=== PATIENT | male | born 1945 | race Caucasian/White ===

== ENCOUNTER 2019-07-03 15:45 | Inpatient (IN) | payer OTHER, SELFPAY ==
[~2019-07-03] VITALS: Ht 188 cm; Wt 95.3 kg
--- NOTE | 2019-07-03 15:50 | NUR ---
TO ER #2 ORGAN ASSEMBLER, SAO2, ABP
--- NOTE | 2019-07-03 15:50 | NUR ---
PT BIB EMS for generalized weakness x today, could not stand, called EMS. No trauma. AxOx 4.
[2019-07-03] MEDS ORDERED: NACL 0.9% 1,000 ML IV ONE (15:53)
[2019-07-03 15:57] VITALS: BP_SYST 173
[2019-07-03] MEDS ORDERED: METF-795 PO (15:57)
--- NOTE | 2019-07-03 16:10 | NUR ---
PATIENT PLACED ON OXYGEN 2LM NC
[2019-07-03 16:33] LABS: BASOPHILS # (AUTO) 0.1 K/uL (0.0-0.2); BASOPHILS % (AUTO) 0.6 % (0.0-2.0); EOSINOPHILS % (AUTO) 0.1 % (0.0-4.0); HEMATOCRIT 47.7 % (36-54); HEMOGLOBIN 16.2 g/dL (14.0-18.0); LYMPHOCYTES # (AUTO) 1.2 K/uL (1.0-5.5); LYMPHOCYTES % (AUTO) 6.7 % (20.5-51.5); MEAN CORPUSCULAR HEMOGLOBIN 34 pg (27-31); MEAN CORPUSCULAR HGB CONC 34 % (32-36); MEAN CORPUSCULAR VOLUME 101 fL (79.0-98.0); MONOCYTES # (AUTO) 1.1 K/uL (0.0-1.0); MONOCYTES % (AUTO) 6.2 % (1.7-9.3); NEUTROPHILS % (AUTO) 86.4 % (40.0-70.0); PLATELET COUNT (AUTO) 190 K/uL (130-430); RED BLOOD CELL COUNT(AUTO) 4.74 MIL/uL (4.2-6.2); RED CELL DISTRIBUTION WIDTH 12.9 % (9.0-15.0); WHITE BLOOD COUNT (AUTO) 17.4 K/uL (4.8-10.8)
[2019-07-03 16:40] LABS: INR 2.2 (0.80-1.20); PROTHROMBIN TIME 21.7 SECS (9.5-12.5)
[2019-07-03 16:41] LABS: ANION GAP 10 (5-15); CALCIUM 8.9 mg/dL (8.4-11.0); CHLORIDE 99 mmol/L (98-107); CREATININE 1.59 mg/dL (0.55-1.30); GLUCOSE 146 mg/dL (70-99); POTASSIUM 3.7 mmol/L (3.5-5.1); SODIUM SERUM 136 mmol/L (136-145); UREA NITROGEN, BLOOD 32 mg/dL (8-21)
[2019-07-03] MEDS ORDERED: cefTRIAXone 1 GM IVPB PREMIX 50 ML IV ONE (16:45)
[2019-07-03 17:00] LABS: ALANINE AMINOTRANSFERASE 49 U/L (12-78); ALBUMIN 3.9 g/dL (3.4-4.8); AMYLASE 18 U/L (0-100); ASPARTATE AMINOTRANSFERASE 104 U/L (10-37); LIPASE 53 U/L (73-393); TOTAL BILIRUBIN 1.8 mg/dL (0.0-1.0)
[2019-07-03 17:01] LABS: ALCOHOL, BLOOD < 3 mg/dL (<10)
[2019-07-03 17:18] LABS: CKMB RELATIVE INDEX 0.4 (0.0-2.9); CREATINE KINASE MB 19.9 ng/mL (0-3.6)
--- NOTE | 2019-07-03 17:34 | NUR ---
Pt's Corrine called for an update on pt, aware waiting on pt labs and stable. [facility] [phone]
[2019-07-03] MEDS ORDERED: NACL 0.9% 2,000 ML IV ONE (18:00)
[2019-07-03 18:40] VITALS: BP_SYST 131
--- NOTE | 2019-07-03 18:40 | NUR ---
Patient arrived from ER and placed to room 118 B. Patient awake, alert, oriented. In no acute distress. On 2 liters 02 NC. Received report from ER nurse. Patient placed on tele monitor.
--- NOTE | 2019-07-03 18:50 | NUR ---
Patient will be admitted to care of . Admitted to tele unit. Will go to room 118B. Belongings list completed. Complete and up to date summary report printed. SBAR report to be given at bedside with opportunity for questions.
[2019-07-03] MEDS ORDERED: ONDANSETRON HCL 4 MG/2 ML VIAL IVP PRN (19:00)
[2019-07-03] MEDS ORDERED: DEXTROSE 50% JECT 50 ML DISP.SYRIN IVP PRN (19:00)
[2019-07-03] MEDS ORDERED: GLUCOSE 15 GM GEL (in 37.5 GM TUBE) PO PRN (19:00)
[2019-07-03] MEDS ORDERED: ACETAMINOPHEN 325 MG TABLET PO PRN (19:00)
--- NOTE | 2019-07-03 19:26 | NUR ---
Endorsed patient and gave report to [facility] shift nurse. Patient in no acute distress. Call light with in reach. Side rails x 3 up. Awake, alert, oriented sitting in bed.
[2019-07-03 19:40] VITALS: BP_SYST 128
--- NOTE | 2019-07-03 19:48 | NUR ---
Initial note: Received report from daysriya RN. Patient is awake, laying in bed. No acute distress. Even, unlabored breathing on 2L NC. IV fluids infusing per MD order. Call light is with patient. Safety and fall precautions in place. Will continue with plan of care.
[2019-07-03 20:30] LABS: C-REACTIVE PROTEIN QUANT 7.8 mg/dL (0-0.5); PHOSPHORUS 4.3 mg/dL (2.7-4.5); THYROID STIMULATING HORMONE 0.95 uIu/mL (0.34-4.82)
--- NOTE | 2019-07-03 20:40 | NUR ---
Fall incident: Patient was found laying in supine position on the floor by donor services team leader May. Patient was assisted back to bed by this RN and charge nurse FRANNIE Servin. Patient is alert, oriented x4, and cooperative. Patient stated he needed to urinate, so he stood up, but then slipped and fell. Patient's urinal is in nino strapped to side rail within patient's reach. Floor surrounding patient's bed is slippery, but not wet. Patient denies dizziness or lightheadedness, denies pain s/p fall. No visible injuries or signs of bleeding noted. Blood sugar is 171. Vital signs assessed and recorded in post-fall assessment, hypotension not evident. Patient was changed into a yellow gown, non-skid socks applied to patient's feet bilaterally, fall risk band applied to patient's wrist. Bed is locked in lowest position, side rails raised x3, bed alarm on. Call light is with patient, patient verbalized correct usage of call light. Will monitor patient closely.
[2019-07-03] MEDS: FAMOTIDINE 20 MG TABLET PO SCH ×2 (20:45→21:27)
[2019-07-03] MEDS: NACL 0.9% 1,000 ML IV SCH (21:00)
--- NOTE | 2019-07-03 21:08 | NUR ---
Dr. Ivory: Spoke with Dr over phone, made him aware regarding patient fall. No new orders received. Informed Dr of blood sugar of 171, order received for sliding scale regular insulin. Verified by read-back, RN to input.
[2019-07-03] MEDS: DOCUSATE SODIUM 100 MG CAPSULE PO SCH (21:27)
--- NOTE | 2019-07-03 23:46 | NUR ---
CONSULT: CONSULT CALLED FOR DR. GETACHEW STARR NETWORK ANNOUNCER SHE CALLED US BACK AWARE OD THE CONSULT
--- NOTE | 2019-07-03 23:54 | NUR ---
CONSULT: CONSULT CALLED FOR DR. BERMEO I SPOKE WITH LUIZ LAWSON REASON FOR CONSULT: PNEUMONIA R/O COVID 19 REQUESTING CONSULT: DR. HANNA COMBINATION TECHNICIAN PHONE NUMBER: [phone] Addendum: 07/04/19 at 0011 by [place] [facility]/ DR. RAMIREZ PARKING REGULATION ENFORCEMENT OFFICER FOR DR. BERMEO
--- NOTE | 2019-07-04 00:17 | NUR ---
Dr. Ivory rounds: Dr. Ivory present at bedside to assess and examine patient. No new orders.
[2019-07-04] MEDS: NACL 0.9% 1,000 ML IV SCH ×2 (00:31→19:53)
[2019-07-04 00:34] VITALS: BP_SYST 113
[2019-07-04] MEDS ORDERED: GLIP5TAB13 PO (01:29)
[2019-07-04] MEDS ORDERED: CARV25TA55 PO (01:32)
[2019-07-04] MEDS ORDERED: HYDR25TA4 PO (01:33)
[2019-07-04] MEDS ORDERED: RAMI10CA32 PO (01:33)
--- NOTE | 2019-07-04 01:33 | NUR ---
Spoke with : Corrine called nurses' station for update regarding patient. Obtained full home medication list. Will input medications and have admitting physician reconcile.
[2019-07-04] MEDS ORDERED: LIP20 PO (01:36)
[2019-07-04] MEDS ORDERED: WARF2TAB2 PO (01:36)
--- NOTE | 2019-07-04 01:46 | NUR ---
Dr. Ivory: Spoke with over phone regarding patient's heart rate sustaining in the 130's to 140's. MD was also updated regarding patient's home medications. New orders received, verified by read-back, RN to input.
[2019-07-04] MEDS ORDERED: DILT180C67 PO (01:47)
[2019-07-04] MEDS: DILTIAZEM HCL 180 MG CAP.SR.24H PO SCH (02:19)
--- NOTE | 2019-07-04 03:57 | NUR ---
Rounds: Bed alarm was activated, patient was found sitting at edge of bed. Instructed patient to stay in bed, patient compliant. Patient stated he needed to use the bathroom to void, reminded patient to use his urinal. Patient verbalized understanding. No acute distress on 2L NC. IV fluids infusing well. Call light is with patient. Will continue monitoring.
[2019-07-04] MEDS: INSULIN REGULAR, HUMAN 100 UNITS/ML, 10 ML VIAL (humuLIN R) SUBCUT PRN ×3 (06:44→21:12)
--- NOTE | 2019-07-04 07:45 | NUR ---
Initial notes: Patient is awake, alert and oriented, resting in bed. No signs of distress or nonlabored breathing on 2L NC. Denies pain at this time. IV on right hand is patent and running NS. Cluster care was provided throughout shift. Covid test is still pending, he will remain in isolation for the time being. Received report from day shift nurse. Bed is low, locked, 2 side rails up and call light is within reach. Carmelita KATHLEEN
[2019-07-04 08:00] VITALS: BP_SYST 118
[2019-07-04] MEDS: DOCUSATE SODIUM 100 MG CAPSULE PO SCH ×2 (08:33→21:06)
[2019-07-04] MEDS: CARVEDILOL 25 MG TABLET (COREG) PO SCH ×2 (08:34→21:06)
[2019-07-04] MEDS: HYDROCHLOROTHIAZIDE 25 MG TABLET (HCTZ) PO SCH (08:34)
[2019-07-04] MEDS: ATORVASTATIN 20 MG TABLET PO SCH (08:34)
[2019-07-04] MEDS: LISINOPRIL 20 MG TABLET PO SCH (08:34)
[2019-07-04] MEDS: AZITHROMYCIN 250 MG TABLET PO SCH (08:34)
[2019-07-04] MEDS: FAMOTIDINE 20 MG TABLET PO SCH (08:34)
[2019-07-04 08:50] LABS: BASOPHILS # (AUTO) 0.1 K/uL (0.0-0.2); BASOPHILS % (AUTO) 0.5 % (0.0-2.0); EOSINOPHILS % (AUTO) 0.1 % (0.0-4.0); HEMATOCRIT 42.5 % (36-54); HEMOGLOBIN 14.6 g/dL (14.0-18.0); LYMPHOCYTES # (AUTO) 1.1 K/uL (1.0-5.5); LYMPHOCYTES % (AUTO) 6.8 % (20.5-51.5); MEAN CORPUSCULAR HEMOGLOBIN 35 pg (27-31); MEAN CORPUSCULAR HGB CONC 34 % (32-36); MEAN CORPUSCULAR VOLUME 101 fL (79.0-98.0); MONOCYTES # (AUTO) 0.7 K/uL (0.0-1.0); MONOCYTES % (AUTO) 4.3 % (1.7-9.3); NEUTROPHILS # (AUTO) 13.9 K/uL (1.8-7.7); NEUTROPHILS % (AUTO) 88.3 % (40.0-70.0); PLATELET COUNT (AUTO) 148 K/uL (130-430); RED BLOOD CELL COUNT(AUTO) 4.21 MIL/uL (4.2-6.2); RED CELL DISTRIBUTION WIDTH 13.2 % (9.0-15.0); WHITE BLOOD COUNT (AUTO) 15.7 K/uL (4.8-10.8)
[2019-07-04 09:03] LABS: ANION GAP 8 (5-15); CALCIUM 7.3 mg/dL (8.4-11.0); CHLORIDE 107 mmol/L (98-107); CHOLESTEROL 110 mg/dL (<200); CREATININE 0.84 mg/dL (0.55-1.30); GLUCOSE 162 mg/dL (70-99); HDL CHOLESTEROL 47 mg/dL (>45); LDL CHOLESTEROL 50 mg/dL (<100); SODIUM SERUM 141 mmol/L (136-145); TRIGLYCERIDES 87 mg/dL (30-150); UREA NITROGEN, BLOOD 22 mg/dL (8-21)
[2019-07-04 09:13] LABS: C-REACTIVE PROTEIN QUANT 15.4 mg/dL (0-0.5)
[2019-07-04] MEDS: HEPARIN SODIUM,PORCINE 5000 UNITS/ML VIAL SUBCUT SCH ×2 (09:17→21:08)
[2019-07-04 09:32] LABS: ERYTHROCYTE SEDIMENTATION RATE 6 MM/HR (0-15)
--- NOTE | 2019-07-04 10:02 | NUR ---
Bed commode was brought in as patient had a bowel movement accident on the floor. His bedside commode was made accessible and he was instructed to call the nurse before trying to get up. Bed is low, locked, 2 side rails up and call light is within reach. Carmelita KATHLEEN
[2019-07-04] MEDS ORDERED: ASCORBIC ACID 500 MG TABLET PO ONE (11:30)
--- NOTE | 2019-07-04 12:05 | NUR ---
Meal tray was delivered and cluster care was provided. No signs of distress were noted. Bed is low, locked, 2 side rails are up and call light is within reach. Trevor KATHLEEN
[2019-07-04 14:08] VITALS: BP_SYST 118
--- NOTE | 2019-07-04 14:12 | NUR ---
Patient is well and not showing any signs of distress on monitor or tv camera, i called the patient in the intercom to verify wellbeing or if he needed anything. Trevor KATHLEEN
[2019-07-04] MEDS ORDERED: POTASSIUM CHLORIDE 40 MEQ, LIDOCAINE JECT 2% PF 100 MG 50 MG in NS 250 ML IV ONE (14:30)
--- NOTE | 2019-07-04 16:00 | NUR ---
Patient is doing well, he shows no signs of distress. Bed is low, locked, 2 side rails up and call light is within reach. Carmelita KATHLEEN
[2019-07-04] MEDS: cefTRIAXone 1 GM in D5W 50 ML IV SCH (17:00)
[2019-07-04] MEDS ORDERED: WARFARIN SODIUM 2 MG TABLET PO SCH (18:00)
--- NOTE | 2019-07-04 18:05 | NUR ---
Meal tray was delivered and new IV meds were hung. Patient was repositioned and helped to get up higher in bed. He is not showing signs of distress. Bed is low, locked, 2 side rails up and call light is within reach, Trevor KATHLEEN
--- NOTE | 2019-07-04 18:27 | NUR ---
Closing notes: Patient is awake, alert and oriented, resting in bed. No signs of distress or nonlabored breathing on 2L NC. Denies pain at this time. IV on right hand is patent and running NS. Cluster care was provided throughout shift. Covid test is still pending, he will remain in isolation for the time being. Report will be given to 3rd mate nurse. Bed is low, locked, 2 side rails up and call light is within reach. Carmelita KATHLEEN
[2019-07-04 18:31] VITALS: BP_SYST 99
--- NOTE | 2019-07-04 21:00 | NUR ---
ROUNDS PATIENT DISCONNECTED COLLAR CUTTER/OXIMETER. IV LINE OUT AND FOUND ON THE BED. NO ACTIVE BLEEDING NOTED. 02 CANNULA DISCONNECTED. PATIENT REORIENTED AND PLACED BACK ON 02 CANNULA, COLLAR CUTTER AND OXIMETER. CALL LIGHT WITH IN REACH.
[2019-07-04] MEDS: ASCORBIC ACID 500 MG TABLET PO SCH (21:06)
[2019-07-04 21:12] VITALS: BP_SYST 163
--- NOTE | 2019-07-04 21:12 | NUR ---
MED PASS PATIENT DUE MEDICATIONS GIVEN AND TOLERATED. VITAL SIGNS STABLE. INSERTED NEW IV LINE TO RT WRIST GAUGE 22 WITH GOOD BLOOD RETURN.
[2019-07-05 00:04] VITALS: BP_SYST 120
--- NOTE | 2019-07-05 00:45 | NUR ---
ROUNDS PATIENT RESTING IN BED. NO DISTRESS NOTED. VITAL SIGNS STABLE. CALL LIGHT WITH IN REACH.
--- NOTE | 2019-07-05 03:15 | NUR ---
CARE ASSISTED WITH COMMODE USE. PATIENT CHUX CHANGED. PROVIDED WITH NEW GOWN AND BLANKETS.
[2019-07-05 06:38] LABS: BASOPHILS # (AUTO) 0.1 K/uL (0.0-0.2); BASOPHILS % (AUTO) 0.5 % (0.0-2.0); EOSINOPHILS # (AUTO) 0.1 K/uL (0.0-0.4); EOSINOPHILS % (AUTO) 0.5 % (0.0-4.0); HEMATOCRIT 45.7 % (36-54); HEMOGLOBIN 15.6 g/dL (14.0-18.0); LYMPHOCYTES # (AUTO) 1.2 K/uL (1.0-5.5); LYMPHOCYTES % (AUTO) 9.6 % (20.5-51.5); MEAN CORPUSCULAR HEMOGLOBIN 35 pg (27-31); MEAN CORPUSCULAR HGB CONC 34 % (32-36); MEAN CORPUSCULAR VOLUME 101 fL (79.0-98.0); MONOCYTES # (AUTO) 0.7 K/uL (0.0-1.0); MONOCYTES % (AUTO) 5.1 % (1.7-9.3); NEUTROPHILS # (AUTO) 10.9 K/uL (1.8-7.7); NEUTROPHILS % (AUTO) 84.3 % (40.0-70.0); PLATELET COUNT (AUTO) 131 K/uL (130-430); RED BLOOD CELL COUNT(AUTO) 4.53 MIL/uL (4.2-6.2); RED CELL DISTRIBUTION WIDTH 13.3 % (9.0-15.0)
--- NOTE | 2019-07-05 06:41 | NUR ---
CLOSING NOTES PATIENT RESTING IN BED. TOLERATING 02 2L NC. IVF INFUSING WITH IV LINE INTACT AND PATENT. PATIENT NEEDS ATTENDED. CALL LIGHT WITH IN REACH.
--- NOTE | 2019-07-05 07:07 | NUR ---
Nutrition Update Jerson Scale 18 noted. Pt admitted for Pneumonia, Acute Kidney Injury Diet: Regular BMI: 27 kg/m2 RD to follow per nutrition care standards.
[2019-07-05 07:35] LABS: ANION GAP 7 (5-15); CALCIUM 8.3 mg/dL (8.4-11.0); CHLORIDE 103 mmol/L (98-107); CREATININE 0.91 mg/dL (0.55-1.30); GLUCOSE 150 mg/dL (70-99); LACTATE DEHYDROGENASE 507 U/L (85-227); POTASSIUM 3.7 mmol/L (3.5-5.1); SODIUM SERUM 136 mmol/L (136-145); UREA NITROGEN, BLOOD 23 mg/dL (8-21)
[2019-07-05 07:40] LABS: ERYTHROCYTE SEDIMENTATION RATE 14 MM/HR (0-15)
[2019-07-05 08:17] LABS: C-REACTIVE PROTEIN QUANT 20.1 mg/dL (0-0.5)
[2019-07-05 08:26] VITALS: BP_SYST 120
[2019-07-05] MEDS: HEPARIN SODIUM,PORCINE 5000 UNITS/ML VIAL SUBCUT SCH ×2 (08:30→20:43)
[2019-07-05] MEDS: FAMOTIDINE 20 MG TABLET PO SCH (08:31)
[2019-07-05] MEDS: DOCUSATE SODIUM 100 MG CAPSULE PO SCH ×2 (08:31→20:42)
[2019-07-05] MEDS: ASCORBIC ACID 500 MG TABLET PO SCH ×2 (08:31→20:42)
[2019-07-05] MEDS: CARVEDILOL 25 MG TABLET (COREG) PO SCH ×2 (08:31→20:42)
[2019-07-05] MEDS: LISINOPRIL 20 MG TABLET PO SCH (08:31)
[2019-07-05] MEDS: ATORVASTATIN 20 MG TABLET PO SCH (08:31)
[2019-07-05] MEDS: AZITHROMYCIN 250 MG TABLET PO SCH (08:31)
[2019-07-05] MEDS: DILTIAZEM HCL 180 MG CAP.SR.24H PO SCH (08:31)
[2019-07-05] MEDS: HYDROCHLOROTHIAZIDE 25 MG TABLET (HCTZ) PO SCH (08:31)
--- NOTE | 2019-07-05 08:35 | NUR ---
OPENING NOTES/ ROUTINE MEDS PT AWAKE, ALERT, AND ORIENTED. NONLABORED BREATHING NOTED ON 2L NC, TOLERATING WELL. PT DENIES PAIN AND SOB AT THIS TIME. IV LINE INTACT AND PATENT, NO SIGNS OF INFILTRATION NOTED, FLUIDS RUNNING ORDERED PER MD, TOLERATING WELL. NO ACUTE DISTRESS NOTED. ROUTINE MEDS ADMINISTERED ORDERED PER MD, EDUCATION GIVEN, TOLERATED WELL. ALL NEEDS MET. CALL LIGHT IN REACH. FALL AND ASPIRATION PRECAUTIONS IN PLACE. CONTINUE TO MONITOR.
[2019-07-05 09:08] LABS: CKMB RELATIVE INDEX 0.2 (0.0-2.9); CREATINE KINASE MB 11.6 ng/mL (0-3.6)
--- NOTE | 2019-07-05 09:35 | NUR ---
CONSULTATION PAGED REASON FOR CONSULTATION A-FIB WAS CONSULT CALLED?Y PERSON WHO WAS NOTIFIED:MI CONSULTING PHYSICIAN:EDWIN KAUR MOTOR VEHICLES INSPECTOR SPECIALTY:CARDIO MOTOR VEHICLES INSPECTOR PHONE NUMBER:[phone] REQUESTING PHYSICIAN:DR.[facility]
--- NOTE | 2019-07-05 11:36 | NUR ---
Dietitian Recommendations *Recommend: [facility] Card[facility]. *Provide snacks in between meals. *Encourage pt to increase PO intake. Please see Nutritional Assessment for details. ABDIRASHID, RD
[2019-07-05 12:00] VITALS: BP_SYST 128
[2019-07-05] MEDS: HYDROcodone/ACETAMIN 5-325 MG TAB (NORCO/ VICODIN) PO PRN (12:27)
[2019-07-05] MEDS: INSULIN REGULAR, HUMAN 100 UNITS/ML, 10 ML VIAL (humuLIN R) SUBCUT PRN ×3 (12:28→20:39)
--- NOTE | 2019-07-05 12:30 | NUR ---
PT C/O BACK PAIN, ADMINISTERED PAIN MEDS ORDERED PER MD, CONTINUE TO MONITOR.
--- NOTE | 2019-07-05 12:45 | NUR ---
OXYGEN DESAT OXYGEN DESAT TO 85%, SPOKE TO DR. CHILEL ON THE TELEPHONE. RECEIVED ORDERS, VERIFIED AND CARRIED OUT.
[2019-07-05] MEDS: NACL 0.9% 1,000 ML IV SCH (12:53)
--- NOTE | 2019-07-05 15:03 | NUR ---
PAGED PAGED NATALIE DELGADO AT [phone] SPOKE WITH JULIAN.
--- NOTE | 2019-07-05 15:30 | NUR ---
SEEN BY DR. CHILEL AT BEDSIDE.
[2019-07-05 16:18] VITALS: BP_SYST 110
[2019-07-05] MEDS: cefTRIAXone 1 GM in D5W 50 ML IV SCH (17:00)
--- NOTE | 2019-07-05 17:00 | NUR ---
ROUTINE MEDS AND ACCUCHECK ROUTINE MEDS ADMINISTERED ORDERED PER MD, ACCUCHECK DONE, INSULIN ADMINISTERED ORDERED PER SLIDING SCALE. TOLERATED WELL. CONTINUE TO MONITOR.
--- NOTE | 2019-07-05 19:00 | NUR ---
CLOSING NOTES PT AWAKE, ALERT, AND ORIENTED. NONLABORED BREATHING NOTED, RECEIVING O2 AT 4LPM VIA NASAL CANNULA. PT DENIES PAIN AND SOB AT THIS TIME. IV LINE INTACT AND PATENT, NO SIGNS OF INFILTRATION NOTED, FLUIDS RUNNING ORDERED. NO ACUTE DISTRESS NOTED. ALL NEEDS MET. CALL LIGHT IN REACH. FALL, ASPIRATION, AND ISOLATION PRECAUTIONS IN PLACE. ENDORSE CARE TO FRANNIE GREENWOOD.
--- NOTE | 2019-07-05 19:30 | NUR ---
OPENING NOTE RECEIVED CARE OF PT AND SBAR REPORT. PT IS AWAKE AND RESTING IN BED. NO ACUTE DISTRESS NOTED AT THIS TIME. BREATHING IS UNLABORED TO O2 VIA NC AT 4L. SAFETY AND ISOLATION PRECAUTIONS ARE IN PLACE. WILL MONITOR.
[2019-07-05 20:00] VITALS: BP_SYST 105
--- NOTE | 2019-07-05 20:45 | NUR ---
ROUTINE MEDS/ ACCUCHECK ROUTINE MEDS ADMINISTERED ORDERED PER MD. ACCUCHECK DONE, BS OF 204, 4 UNITS OF REGULAR INSULIN ADMINISTERED ORDERED PER SLIDING SCALE. TOLERATED WELL. WILL CONTINUE TO MONITOR.
--- NOTE | 2019-07-05 22:25 | NUR ---
RN NOTE: PT O2 SATURATION NOTED TO BE 88% ON THE MONITOR. PT NOTED TO HAVE REMOVED HIS OXYGEN WHILE SLEEPING. OXYGEN VIA NC AT 4L PUT BACK ON PT BY PRIMARY NURSE. PT EDUCATED REGARDING IMPORTANCE OF KEEPING ON OXYGEN. PT VERBALIZED UNDERSTANDING. O2 SATURATION NOTED TO BE 94%. SAFETY AND ISOLATION PRECAUTIONS MAINTAINED. WILL MONITOR.
--- NOTE | 2019-07-06 00:15 | NUR ---
IV RE-INSERTION: IV NOTED TO HAVE COME OUT. Restarted on RIGHT FOREARM. Successful after 1 attempt. Resumed current IVF AT ORDERED RATE. Will observe for any signs of infiltration.
[2019-07-06] MEDS: NACL 0.9% 1,000 ML IV SCH ×2 (00:29→17:01)
[2019-07-06 00:30] VITALS: BP_SYST 108
--- NOTE | 2019-07-06 02:35 | NUR ---
RESTING PT RESTING IN BED, NO S/S OF ACUTE DISTRESS, BREATHING IS UNLABORED TO O2 VIA NC AT 4L. IVF INFUSING AT ORDERED RATE. SAFETY AND ISOLATION PRECAUTIONS ARE IN PLACE. WILL MONITOR.
--- NOTE | 2019-07-06 04:47 | NUR ---
SLEEPING PT RESTING IN BED, NO S/S OF ACUTE DISTRESS, BREATHING IS UNLABORED TO O2 VIA NC AT 4L. IVF INFUSING AT ORDERED RATE. SAFETY AND ISOLATION PRECAUTIONS ARE IN PLACE. WILL CONTINUE TO MONITOR.
--- NOTE | 2019-07-06 06:28 | NUR ---
ACCUCHECK BLOOD SUGAR OF 120, NO INSULIN COVERAGE INDICATED PER SLIDING SCALE.
--- NOTE | 2019-07-06 06:48 | NUR ---
CLOSING NOTES PT AWAKE, ALERT, AND ORIENTED, NO S/S OF ACUTE DISTRESS. NONLABORED BREATHING NOTED, RECEIVING O2 AT 4LPM VIA NASAL CANNULA. PT DENIES PAIN OR SOB AT THIS TIME. IV LINE INTACT AND PATENT, NO SIGNS OF INFILTRATION NOTED, FLUIDS RUNNING ORDERED. NO ACUTE DISTRESS NOTED. ALL NEEDS MET. CALL LIGHT IN REACH. FALL, ASPIRATION, AND ISOLATION PRECAUTIONS IN PLACE. WILL ENDORSE TO DAY SHIFT RN.
[2019-07-06 07:03] LABS: BASOPHILS # (AUTO) 0.1 K/uL (0.0-0.2); BASOPHILS % (AUTO) 0.5 % (0.0-2.0); EOSINOPHILS # (AUTO) 0.1 K/uL (0.0-0.4); EOSINOPHILS % (AUTO) 0.9 % (0.0-4.0); HEMOGLOBIN 14.6 g/dL (14.0-18.0); LYMPHOCYTES # (AUTO) 1.6 K/uL (1.0-5.5); LYMPHOCYTES % (AUTO) 14.4 % (20.5-51.5); MEAN CORPUSCULAR HEMOGLOBIN 35 pg (27-31); MEAN CORPUSCULAR HGB CONC 34 % (32-36); MEAN CORPUSCULAR VOLUME 103 fL (79.0-98.0); MONOCYTES # (AUTO) 0.7 K/uL (0.0-1.0); MONOCYTES % (AUTO) 6.7 % (1.7-9.3); NEUTROPHILS # (AUTO) 8.5 K/uL (1.8-7.7); NEUTROPHILS % (AUTO) 77.5 % (40.0-70.0); PLATELET COUNT (AUTO) 129 K/uL (130-430); RED BLOOD CELL COUNT(AUTO) 4.18 MIL/uL (4.2-6.2); RED CELL DISTRIBUTION WIDTH 13.1 % (9.0-15.0)
[2019-07-06 07:30] LABS: ANION GAP 4 (5-15); CALCIUM 8.5 mg/dL (8.4-11.0); CHLORIDE 106 mmol/L (98-107); CREATININE 0.76 mg/dL (0.55-1.30); GLUCOSE 146 mg/dL (70-99); LACTATE DEHYDROGENASE 430 U/L (85-227); POTASSIUM 3.6 mmol/L (3.5-5.1); SODIUM SERUM 140 mmol/L (136-145); UREA NITROGEN, BLOOD 21 mg/dL (8-21)
--- NOTE | 2019-07-06 07:30 | NUR ---
OPENING NOTE Patient resting in the bed. No acute distress. On O2 4L/min via NC. AAO x 4. Denied of pain. Skin warm and dry to touch. IV intact to RFA, no redness, no swelling, no drainage. On NS at 70ml/hr, infusing well. Discussed the safety issue, use call light when needs help, and plan of care, verbally understanding. Safety measure maintained. Call light within reached. Bed locked in low position, side rails up, bed alarm on. Will continue to monitor.
[2019-07-06 08:00] LABS: C-REACTIVE PROTEIN QUANT 10.2 mg/dL (0-0.5)
--- NOTE | 2019-07-06 08:20 | NUR ---
AM SCHEDULE MED GIVEN, TOLERATED WELL.
[2019-07-06 08:21] VITALS: BP_SYST 126
[2019-07-06] MEDS: HEPARIN SODIUM,PORCINE 5000 UNITS/ML VIAL SUBCUT SCH ×2 (08:26→20:22)
[2019-07-06] MEDS: CARVEDILOL 25 MG TABLET (COREG) PO SCH ×2 (08:27→20:28)
[2019-07-06] MEDS: HYDROCHLOROTHIAZIDE 25 MG TABLET (HCTZ) PO SCH (08:27)
[2019-07-06] MEDS: ATORVASTATIN 20 MG TABLET PO SCH (08:27)
[2019-07-06] MEDS: LISINOPRIL 20 MG TABLET PO SCH (08:27)
[2019-07-06] MEDS: FAMOTIDINE 20 MG TABLET PO SCH (08:27)
[2019-07-06] MEDS: DOCUSATE SODIUM 100 MG CAPSULE PO SCH ×2 (08:27→20:27)
[2019-07-06] MEDS: DILTIAZEM HCL 180 MG CAP.SR.24H PO SCH (08:27)
[2019-07-06] MEDS: ASCORBIC ACID 500 MG TABLET PO SCH ×2 (08:27→20:27)
[2019-07-06] MEDS: AZITHROMYCIN 250 MG TABLET PO SCH (08:27)
[2019-07-06 08:54] LABS: CKMB RELATIVE INDEX 0.2 (0.0-2.9); CREATINE KINASE MB 5.3 ng/mL (0-3.6)
--- NOTE | 2019-07-06 10:39 | NUR ---
SEEN AND EXAMINED BY EDWIN GARCIA WITH ORDER RECEIVED.
[2019-07-06 11:24] LABS: INR 1.4 (0.80-1.20); PROTHROMBIN TIME 14.2 SECS (9.5-12.5)
[2019-07-06 12:00] VITALS: BP_SYST 112
[2019-07-06] MEDS: INSULIN REGULAR, HUMAN 100 UNITS/ML, 10 ML VIAL (humuLIN R) SUBCUT PRN ×3 (12:19→20:21)
--- NOTE | 2019-07-06 12:23 | NUR ---
BT=504 Humulin R insulin 2 units given as ordered. No acute distress. Continue on O2 via NC. IV intact, IVF infusing well. Safety measure maintained. Call light within reached. Continue to monitor.
[2019-07-06] MEDS ORDERED: CHOLECALCIFEROL (VITAMIN D3) 2,000 UNIT TABLET PO ONE (12:30)
--- NOTE | 2019-07-06 14:20 | NUR ---
CALLED Received the call from the patient's to update the condition of the patient. Asked the name of primary physician and the acetylene gas compressor who was talked to her early, Last name of the doctors given. Transferred the phone to the patient's room and talked with the patient.
[2019-07-06 16:00] VITALS: BP_SYST 128
--- NOTE | 2019-07-06 16:05 | NUR ---
ROUND Patient resting in the bed. No acute distress. Continue on O2 4L/min via NC. IV intact, IVF infusing well. Isolation maintained. Safety measure maintained. Call light within reached. Continue to monitor.
[2019-07-06] MEDS: cefTRIAXone 1 GM in D5W 50 ML IV SCH (17:02)
[2019-07-06] MEDS: WARFARIN SODIUM 4 MG TABLET PO SCH (17:04)
--- NOTE | 2019-07-06 17:31 | NUR ---
OFF ISOLATION Patient transferred to room 113 B. Report given to Joanne with SBAR. Patient transferred via wheelchair in stable condition. Skin warm and dry. IV intact to RFA, no redness, no swelling, no drainage. On NS at 70ml/hr, infusing well. Continue on O2 4L/min via NC. Safety measure maintained. Call light within reached. Joanne will resume the care.
--- NOTE | 2019-07-06 17:35 | NUR ---
Patient transferred in stable condition to Room 113B.
[2019-07-06] MEDS ORDERED: WARFARIN SODIUM 2 MG TABLET PO SCH (18:00)
--- NOTE | 2019-07-06 19:00 | NUR ---
Routine Patient sitting on side of bed with no distress noted. Patient stable since transfer to unit.
[2019-07-06 19:50] VITALS: BP_SYST 121
--- NOTE | 2019-07-06 19:50 | NUR ---
INITIAL NOTES PATIENT IS STABLE AND LAYING IN BED. NO S/S OF RESPIRATORY DISTRESS NOTED. PATIENT SUCCESSFULLY DEMONSTRATES USAGE OF CALL LIGHT. CALL LIGHT IN REACH. BED IS LOCKED, ALARMED, AND AT THE LOWEST POSITION. FALL, SAFETY, ASPIRATION, AND RESPIRATORY PRECAUTIONS WILL BE IN PLACE THROUGHOUT THE SHIFT. PLAN OF CARE IS DISCUSSED WITH PATIENT AT THIS TIME.
--- NOTE | 2019-07-06 21:50 | NUR ---
patient is laying in bed and stable. patient is watching tv. patient is stable. no s/s of respiratory distress noted. call light in reach.
--- NOTE | 2019-07-06 22:50 | NUR ---
PATIENT USED THE URINAL AT THIS TIME. PATIENT REPOSITION BACK IN BED. PATIENT TOLERATED WELL. NO S/S OF RESPIRATORY DISTRESS NOTED. CALL LIGHT IN REACH.
--- NOTE | 2019-07-07 00:02 | NUR ---
PATIENT IS STABLE AND SLEEPING IN BED. NO S/S OF RESPIRATORY DISTRESS NOTED. CALL LIGHT IN REACH.
[2019-07-07 01:04] VITALS: BP_SYST 117; BP_SYST 125
--- NOTE | 2019-07-07 02:00 | NUR ---
PATIENT IS STABLE AND SLEEPING IN BED. NO S/S OF RESPIRATORY DISTRESS NOTED. CALL LIGHT IN REACH.
[2019-07-07] MEDS: NACL 0.9% 1,000 ML IV SCH ×2 (04:10→20:11)
--- NOTE | 2019-07-07 04:17 | NUR ---
PATIENT USED THE URINAL AT THIS TIME. PATIENT IS REPOSITION BACK IN BED. PATIENT IS STABLE. NO S/S OF RESPIRATORY DISTRESS NOTED. CALL LIGHT IN REACH.
--- NOTE | 2019-07-07 06:12 | NUR ---
CLOSING NOTES PATIENT IS STABLE AND LAYING IN BED. NO S/S OF RESPIRATORY DISTRESS NOTED. CALL LIGHT IN REACH. BED IS LOCKED, ALARMED, AND AT THE LOWEST POSITION. FALL, SAFETY, ASPIRATION, AND RESPIRATORY PRECAUTIONS HAS BEEN IN PLACE THROUGHOUT THE SHIFT. WILL CONTINUE TO MONITOR UNTIL REPORT IS ENDORSED TO AM NURSE.
[2019-07-07 06:16] LABS: INR 1.5 (0.80-1.20); PROTHROMBIN TIME 15.4 SECS (9.5-12.5)
[2019-07-07 06:18] LABS: ANION GAP 3 (5-15); C-REACTIVE PROTEIN QUANT 5.5 mg/dL (0-0.5); CALCIUM 8.2 mg/dL (8.4-11.0); CHLORIDE 104 mmol/L (98-107); GLUCOSE 131 mg/dL (70-99); LACTATE DEHYDROGENASE 377 U/L (85-227); POTASSIUM 3.1 mmol/L (3.5-5.1); SODIUM SERUM 138 mmol/L (136-145); UREA NITROGEN, BLOOD 17 mg/dL (8-21)
[2019-07-07 06:24] LABS: BASOPHILS % (AUTO) 0.6 % (0.0-2.0); EOSINOPHILS # (AUTO) 0.1 K/uL (0.0-0.4); EOSINOPHILS % (AUTO) 1.7 % (0.0-4.0); HEMATOCRIT 40.2 % (36-54); HEMOGLOBIN 13.8 g/dL (14.0-18.0); LYMPHOCYTES # (AUTO) 1.6 K/uL (1.0-5.5); LYMPHOCYTES % (AUTO) 19.5 % (20.5-51.5); MEAN CORPUSCULAR HEMOGLOBIN 35 pg (27-31); MEAN CORPUSCULAR HGB CONC 34 % (32-36); MEAN CORPUSCULAR VOLUME 102 fL (79.0-98.0); MONOCYTES # (AUTO) 0.6 K/uL (0.0-1.0); MONOCYTES % (AUTO) 7.7 % (1.7-9.3); NEUTROPHILS # (AUTO) 5.8 K/uL (1.8-7.7); NEUTROPHILS % (AUTO) 70.5 % (40.0-70.0); PLATELET COUNT (AUTO) 136 K/uL (130-430); RED BLOOD CELL COUNT(AUTO) 3.95 MIL/uL (4.2-6.2); RED CELL DISTRIBUTION WIDTH 12.9 % (9.0-15.0)
[2019-07-07 06:59] LABS: WHITE BLOOD COUNT (AUTO) 8.2 K/uL (4.8-10.8)
--- NOTE | 2019-07-07 07:59 | NUR ---
Initial notes: Patient is doing well, he is alert and oriented this morning. His IV on RFA is patent and running NS @70ml/hr. Patient is scheduled to have an US done today, after the US he may resume to eat. A PT eval will be scheduled for today to see how he does. Patient is breathing well in 4L NC, and does not have any pain at this given time. I got full report from the mold shifter nurse. Bed is low, locked, 2 side rails up and call light is within reach. Carmelita KATHLEEN
[2019-07-07 08:00] VITALS: BP_SYST 141
[2019-07-07] MEDS ORDERED: POTASSIUM CHLORIDE 20 MEQ TAB.PRT.SR PO ONE (08:15)
[2019-07-07 08:26] LABS: CKMB RELATIVE INDEX 0.3 (0.0-2.9); CREATINE KINASE MB 2.5 ng/mL (0-3.6)
[2019-07-07 08:36] LABS: ERYTHROCYTE SEDIMENTATION RATE 16 MM/HR (0-15)
[2019-07-07] MEDS: DOCUSATE SODIUM 100 MG CAPSULE PO SCH ×2 (09:17→20:11)
[2019-07-07] MEDS: AZITHROMYCIN 250 MG TABLET PO SCH (09:17)
[2019-07-07] MEDS: FAMOTIDINE 20 MG TABLET PO SCH (09:18)
[2019-07-07] MEDS: ASCORBIC ACID 500 MG TABLET PO SCH ×2 (09:18→20:11)
[2019-07-07] MEDS: CHOLECALCIFEROL (VITAMIN D3) 2,000 UNIT TABLET PO SCH (09:18)
[2019-07-07] MEDS: ATORVASTATIN 20 MG TABLET PO SCH (09:19)
[2019-07-07] MEDS: DILTIAZEM HCL 180 MG CAP.SR.24H PO SCH (09:19)
[2019-07-07] MEDS: LISINOPRIL 20 MG TABLET PO SCH (09:20)
[2019-07-07] MEDS: HYDROCHLOROTHIAZIDE 25 MG TABLET (HCTZ) PO SCH (09:20)
[2019-07-07] MEDS: CARVEDILOL 25 MG TABLET (COREG) PO SCH ×2 (09:21→20:12)
[2019-07-07] MEDS: HEPARIN SODIUM,PORCINE 5000 UNITS/ML VIAL SUBCUT SCH ×2 (09:28→20:22)
--- NOTE | 2019-07-07 10:11 | NUR ---
Patient is in bed watching TV, still NPO and he is not showing any signs of distress. Bed is low, locked, 2 side rails up and call light is within reach. Carmelita KATHLEEN
--- NOTE | 2019-07-07 12:10 | NUR ---
Patient is in bed, watching TV, his meal tray was delivered, he hardly ate anything from his tray. He does not present any new complaints or show any signs of distress. Bed is low, locked, 2 side rails up and call light is within reach. Carmelita KATHLEEN
[2019-07-07 12:17] VITALS: BP_SYST 118
[2019-07-07] MEDS: INSULIN REGULAR, HUMAN 100 UNITS/ML, 10 ML VIAL (humuLIN R) SUBCUT PRN ×3 (12:32→20:21)
[2019-07-07] MEDS: HYDROcodone/ACETAMIN 5-325 MG TAB (NORCO/ VICODIN) PO PRN (13:31)
--- NOTE | 2019-07-07 14:00 | NUR ---
Patient is doing well, watching TV and is not showing any signs of distress. Bed is low, locked, 2 side rails up and call light is within reach. Carmelita KATHLEEN
--- NOTE | 2019-07-07 16:18 | NUR ---
Patient is in bed, asked for pain meds, norco was given, new IV bag was hung and sugar checked, 2 units of insulin was given. Bed is low, locked, 2 side rails up and call light is within reach. Carmelita KATHLEEN
[2019-07-07 16:23] VITALS: BP_SYST 130
[2019-07-07] MEDS: cefTRIAXone 1 GM in D5W 50 ML IV SCH (17:12)
[2019-07-07] MEDS: WARFARIN SODIUM 4 MG TABLET PO SCH (18:00)
--- NOTE | 2019-07-07 18:12 | NUR ---
Patient is doing well, he does not present any new complaints or shows signs of distress. Bed is low, locked, 2 side rails up and call light is within reach. Carmelita KATHLEEN
--- NOTE | 2019-07-07 18:58 | NUR ---
Closing notes: Patient is doing well, he is alert and oriented. His IV on RFA is patent and running NS @70ml/hr. Patient had his US done today but still pending being reviewed. Patient is breathing well in 4L NC, and does not have any pain at this given time. I got full report from the supervisor component assembler nurse. I will give report to supervisor component assembler nurse. Bed is low, locked, 2 side rails up and call light is within reach. Carmelita KATHLEEN
[2019-07-07 19:30] VITALS: BP_SYST 121
--- NOTE | 2019-07-07 19:30 | NUR ---
INITIAL NOTES PATIENT IS WATCHING TV IN BED. PATIENT IS STABLE. NO S/S OF RESPIRATORY DISTRESS. CALL LIGHT IN REACH. PATIENT SUCCESSFULLY DEMONSTRATES USAGE OF CALL LIGHT AT THIS TIME. BED IS LOCKED AND AT THE LOWEST POSITION. PATIENT EDUCATED ON BED ALARM, PATIENT REFUSED. FALL, SAFETY, ASPIRATION, AND RESPIRATORY PRECAUTIONS WILL BE IN PLACE THROUGHOUT THE SHIFT. PLAN OF CARE IS DISCUSSED WITH PATIENT.
--- NOTE | 2019-07-07 20:30 | NUR ---
PATIENT IS STABLE AND LAYING IN BED AND WATCHING TV. NO S/S OF RESPIRATORY DISTRESS NOTED. CALL LIGHT IN REACH.
--- NOTE | 2019-07-07 22:10 | NUR ---
PATIENT USED THE URINAL AT THIS TIME. PATIENT TOLERATED WELL. PATIENT IS REPOSITION IN BED. NO S/S OF RESPIRATORY DISTRESS NOTED. CALL LIGHT IN REACH.
[2019-07-07 22:57] VITALS: BP_SYST 140
--- NOTE | 2019-07-08 00:10 | NUR ---
PATIENT IS STABLE AND SLEEPING IN BED. NO S/S OF RESPIRATORY DISTRESS NOTED. CALL LIGHT IN REACH.
--- NOTE | 2019-07-08 02:50 | NUR ---
PATIENT IS STABLE AND SLEEPING IN BED. NO S/S OF RESPIRATORY DISTRESS NOTED. CALL LIGHT IN REACH.
--- NOTE | 2019-07-08 04:09 | NUR ---
PATIENT IS STABLE AND LAYING IN BED. NO S/S OF RESPIRATORY DISTRESS NOTED. CALL LIGHT IN REACH. Addendum: 07/08/19 at 0410 by Yasmeen Story RN WARM BLANKET PROVIDED AT THIS TIME*
--- NOTE | 2019-07-08 06:16 | NUR ---
CLOSING NOTES PATIENT IS STABLE AND LAYING IN BED. NO S/S OF RESPIRATORY DISTRESS NOTED. CALL LIGHT IN REACH. BED IS LOCKED AND AT THE LOWEST POSITION. FALL, SAFETY, ASPIRATION, AND RESPIRATORY PRECAUTIONS HAS BEEN IN PLACE THROUGHOUT THE SHIFT. WILL CONTINUE TO MONITOR UNTIL REPORT IS ENDORSED TO AM NURSE BY BEDSIDE.
[2019-07-08 06:56] LABS: BASOPHILS % (AUTO) 0.7 % (0.0-2.0); EOSINOPHILS # (AUTO) 0.2 K/uL (0.0-0.4); EOSINOPHILS % (AUTO) 2.2 % (0.0-4.0); HEMATOCRIT 39.6 % (36-54); HEMOGLOBIN 13.7 g/dL (14.0-18.0); LYMPHOCYTES # (AUTO) 1.6 K/uL (1.0-5.5); LYMPHOCYTES % (AUTO) 22.4 % (20.5-51.5); MEAN CORPUSCULAR HEMOGLOBIN 35 pg (27-31); MEAN CORPUSCULAR HGB CONC 35 % (32-36); MEAN CORPUSCULAR VOLUME 101 fL (79.0-98.0); MONOCYTES # (AUTO) 0.5 K/uL (0.0-1.0); MONOCYTES % (AUTO) 7.3 % (1.7-9.3); NEUTROPHILS # (AUTO) 4.8 K/uL (1.8-7.7); NEUTROPHILS % (AUTO) 67.4 % (40.0-70.0); PLATELET COUNT (AUTO) 132 K/uL (130-430); RED BLOOD CELL COUNT(AUTO) 3.94 MIL/uL (4.2-6.2); RED CELL DISTRIBUTION WIDTH 12.9 % (9.0-15.0); WHITE BLOOD COUNT (AUTO) 7.2 K/uL (4.8-10.8)
[2019-07-08 07:04] LABS: ANION GAP 4 (5-15); CALCIUM 8.2 mg/dL (8.4-11.0); CHLORIDE 104 mmol/L (98-107); CREATININE 0.83 mg/dL (0.55-1.30); GLUCOSE 141 mg/dL (70-99); POTASSIUM 3.1 mmol/L (3.5-5.1); SODIUM SERUM 140 mmol/L (136-145); UREA NITROGEN, BLOOD 16 mg/dL (8-21)
[2019-07-08 08:00] VITALS: BP_SYST 140
--- NOTE | 2019-07-08 08:01 | NUR ---
Initial notes: Patient is well, not under any distress and breathing well on 4L of oxygen on NS. He took his meds without any difficulty. Patient is due to be transferred today. He does not present any new complaints. Bed is low, locked, 2 side rails up and call light is within reach. Carmelita KATHLEEN
[2019-07-08] MEDS: CHOLECALCIFEROL (VITAMIN D3) 2,000 UNIT TABLET PO SCH (08:47)
[2019-07-08] MEDS: ATORVASTATIN 20 MG TABLET PO SCH (08:48)
[2019-07-08] MEDS: FAMOTIDINE 20 MG TABLET PO SCH (08:48)
[2019-07-08] MEDS: DOCUSATE SODIUM 100 MG CAPSULE PO SCH (08:48)
[2019-07-08] MEDS: DILTIAZEM HCL 180 MG CAP.SR.24H PO SCH (08:50)
[2019-07-08] MEDS: CARVEDILOL 25 MG TABLET (COREG) PO SCH (08:50)
[2019-07-08] MEDS: HYDROCHLOROTHIAZIDE 25 MG TABLET (HCTZ) PO SCH (08:51)
[2019-07-08] MEDS: ASCORBIC ACID 500 MG TABLET PO SCH (08:51)
[2019-07-08] MEDS: LISINOPRIL 20 MG TABLET PO SCH (08:51)
[2019-07-08] MEDS: AZITHROMYCIN 250 MG TABLET PO SCH (08:52)
[2019-07-08] MEDS: HEPARIN SODIUM,PORCINE 5000 UNITS/ML VIAL SUBCUT SCH (08:53)
[2019-07-08] MEDS ORDERED: POTASSIUM CHLORIDE 20 MEQ TAB.PRT.SR PO ONE (10:15)
--- NOTE | 2019-07-08 10:15 | NUR ---
Patient is in bed, took all his meds, does not present no new complaints. Bed is low, locked, 2 side rails up and call light is within reach. Carmelita KATHLEEN
--- NOTE | 2019-07-08 10:37 | NUR ---
Discharge Planning: DCP faxed pt referral to [facility] (f [phone] p [phone]), [facility] (f [phone] p [phone]) DCP to follow up Addendum: 07/08/19 at 1132 by Annmarie Tripathi DP DCP received message from Lina at [facility] (f [phone] p [phone]) Rm 20A , ambulance arrange with [facility] ([phone]) Will Call patient packet taken to nurse station. Nurse aware CM will going to speak to .
--- NOTE | 2019-07-08 10:45 | NUR ---
Received called from stating that patient has a room at [facility] and that requested to hold pt belongings. She also stated that they will bring the patients packet and that the ambulance will be "will call". I will begin the DC process and will call [facility] to give report. Carmelita KATHLEEN
--- NOTE | 2019-07-08 11:10 | NUR ---
DC Planning: Confirmed with pt's spouse/Corrine re transfer pt to snf. She stated speaking with dr. Winslow this am and agreed the transfer to [facility] or [facility] today. She asked to keep pt's wallet and other belongings at [facility], not to send with pt to the snf. She will pick them up tomorrow. I advised her to pick remover with security, info at the lobby/die cut operator.-- FRANNIE Lozano made aware.
[2019-07-08] MEDS: INSULIN REGULAR, HUMAN 100 UNITS/ML, 10 ML VIAL (humuLIN R) SUBCUT PRN (11:45)
--- NOTE | 2019-07-08 12:10 | NUR ---
Patient is eating his meal, his sugars only needed a 2 unit of insulin coverage,he presents no new complaints. Bed is low, locked, 2 side rails up and call light is within reach. Carmelita KATHLEEN
[2019-07-08 12:15] VITALS: BP_SYST 140
--- NOTE | 2019-07-08 13:00 | NUR ---
Called [facility] and spoke to Anat to give report for patient's transfer. Patient is ready to go be transferred, pick and shovel man has been scheduled at 4pm. Carmelita KATHLEEN
[2019-07-08 13:20] VITALS: BP_SYST 137
--- NOTE | 2019-07-08 14:02 | NUR ---
Patient is watching tv, he presents no new complaints. Bed is low, locked, 2 side rails up and call light is within reach. Carmelita KATHLEEN
--- NOTE | 2019-07-08 15:07 | NUR ---
[facility] WAS CALLED FOR CONFIRMED REPEATER CHIEF TIME @ 1600 GOING TO [place] RM 18 A. SPOKE TO SUDHA.
[2019-07-08 16:06] VITALS: BP_SYST 143
--- NOTE | 2019-07-08 16:06 | NUR ---
Nutritional Screening High Risk Screening Admitting Diagnosis Pneumonia, Acute Kidney Injury Reviewed Pertinent Medical/Surgical Hx Medical Record Patient Medical History Comment: Pt found w/: Sepsis 2/2 Pneumonia, rule out COVID-19, Rhabdomyolysis, Vasomotor Nephropathy, Atr Fibr, HTN, Transaminitis 2/2 ETOH vs rhabdomyolysis Hyperlipidemia per MD notes. PMH: DM. Pertinent Medical information: Pending Coronavirus PCR. +Isolation Subjective Information RD tried to reach RN via phone x 2 today -- no response. Per intake record, pt's PO improved and good at 78% x last 5 meals. Pt is on regular, standard CCHO - 60g, Cardiac diet x 3 days. Last BM x 2 (07/06) noted per EMR. Per EMR, pt is tested Coronavirus PCR negative x 2 (07/04). Per EM note, pt is ready for possible discharge in 1-2 days. Current Diet Order/Nutrition Support Regular, Standard CCHO -60 g Cardiac Diet x 3 days Patient/Significant Other Able To Verbalize Education Provided Not Indicated Pertinent Medications zinc, VIT C, lipitor, heparin, insulin, colace, pepcid, Vit D3, warfarin Pertinent Labs K 3.1 L, BG 141H (trending down), POC BG 165H, BUN 16 WNL (improved), CRE 0.83 WNL Height (Feet) 6 feet Height (Inches) 2.00 inches Weight (Pounds) 210 pounds Weight (Calculated Kilograms) 95.879791 kilograms Patient Weight 95.254 kg Body Mass Index 26.96 kg/m2 %IBW [address] [place]/Adjusted Body Weight 190#/ 86 kg Recent Weight Change No - per pt Weight Status Overweight Gastrointestinal Symptoms None Last BM July 07, 2019 x 2 per EMR. Food Allergies No - per pt Usual Diet At Home regular diet per pt Skin Integrity Comment: Jerson scale: 20, No pressure injury. No skin issues and edema noted. Current % PO Good (75-100%) Estimated Energy Expenditure (kcals/day) 3300-0570 kcal/day (30-35 kcal/kg IBW for sepsis) Estimated Protein Required (g/day) 129-172gm/day (1.5-2gm/kg IBW for sepsis) Estimated Fluid Required (l/day) 2.6-3 L/day (1ml/kg for maintenance) Problem/Etiology/Signs/Symptoms Increased nutrient needs r/t metabolic demands AEB estimated calories and protein for acute illness. *improving Altered nutrition-related labs r/t endocrine dysfunction AEB elevated BG and POC BG lab values. *ongoing Expected Outcomes/Goals Monitor appetite and PO intake w/ goal of pt meeting at least 80% of estimated nutritional needs, labs trending WNL, normal GI function, skin integrity/wt maintenance. Dietitian Recommendations *Recommend continue Regular, [facility] Card[facility] diet. *Provide snacks in between meals. *Encourage pt to increase PO intake. Follow Up Low Risk: F/U in 7days Addendum: 07/08/19 at [address] CORRECTIONS: Nutrition F/U Admitting Diagnosis Pneumonia, Acute Kidney Injury Reviewed Pertinent Medical/Surgical Hx Medical Record Patient Medical History Comment: Pt found w/: Sepsis 2/2 Pneumonia, rule out COVID-19, Rhabdomyolysis, Vasomotor Nephropathy, Atr Fibr, HTN, Transaminitis 2/2 ETOH vs rhabdomyolysis Hyperlipidemia per MD notes. PMH: DM. Pertinent Medical information: Pending Coronavirus PCR. +Isolation Subjective Information RD tried to reach RN via phone x 2 today -- no response. Per intake record, pt's PO improved and good at 78% x last 5 meals. Pt is on regular, standard CCHO - 60g, Cardiac diet x 3 days. Last BM x 2 (07/06) noted per EMR. Per EMR, pt is tested Coronavirus PCR negative x 2 (07/04). Per EM note, pt is ready for possible discharge in 1-2 days. Current Diet Order/Nutrition Support Regular, Standard CCHO -60 g Cardiac Diet x 3 days Patient/Significant Other Able To Verbalize Education Provided Not Indicated Pertinent Medications zinc, VIT C, lipitor, heparin, insulin, colace, pepcid, Vit D3, warfarin Pertinent Labs K 3.1 L, BG 141H (trending down), POC BG 165H, BUN 16 WNL (improved), CRE 0.83 WNL Height (Feet) 6 feet Height (Inches) 2.00 inches Weight (Pounds) 210 pounds Weight (Calculated Kilograms) 95.325008 kilograms Patient Weight 95.254 kg Body Mass Index 26.96 kg/m2 %IBW [address] [place]/Adjusted Body Weight 190#/ 86 kg Recent Weight Change No - per pt Weight Status Overweight Gastrointestinal Symptoms None Last BM July 07, 2019 x 2 per EMR. Food Allergies No - per pt Usual Diet At Home regular diet per pt Skin Integrity Comment: Jerson scale: 20, No pressure injury. No skin issues and edema noted. Current % PO Good (75-100%) Estimated Energy Expenditure (kcals/day) 9343-3498 kcal/day (30-35 kcal/kg IBW for sepsis) Estimated Protein Required (g/day) 129-172gm/day (1.5-2gm/kg IBW for sepsis) Estimated Fluid Required (l/day) 2.6-3 L/day (1ml/kg for maintenance) Problem/Etiology/Signs/Symptoms Increased nutrient needs r/t metabolic demands AEB estimated calories and protein for acute illness. *improving Altered nutrition-related labs r/t endocrine dysfunction AEB elevated BG and POC BG lab values. *ongoing Expected Outcomes/Goals Monitor appetite and PO intake w/ goal of pt meeting at least 80% of estimated nutritional needs, labs trending WNL, normal GI function, skin integrity/wt maintenance. Dietitian Recommendations *Recommend continue Regular, [facility] Cardiac diet. *Provide snacks in between meals. *Encourage pt to increase PO intake. Follow Up Low Risk: F/U in 7days
--- NOTE | 2019-07-08 16:16 | NUR ---
Dietitian Recommendations *Recommend continue Regular, CCHO Cardiac diet. *Provide snacks in between meals. *Encourage pt to increase PO intake. Please see Nutrition F/U (Nutritional Screening) for details. KYRA ACEVEDO
== END 2019-07-08 15:50 | DRG 871 ==
LOC: SED 15:45 → STU 17:49 → EEVIPCON 17:49 → STU 18:22
PROVIDERS: ADMIT Student in an Organized Health Care Education/Training Program; ATTEND Student in an Organized Health Care Education/Training Program
DX: A41.9 Sepsis, unspecified organism (principal); J18.9 Pneumonia, unspecified organism; N17.0 Acute kidney failure with tubular necrosis; J96.01 Acute respiratory failure with hypoxia; M62.82 Rhabdomyolysis; I48.20 Chronic atrial fibrillation, unspecified; J44.0 Chronic obstructive pulmonary disease with (acute) lower respiratory infection; D72.810 Lymphocytopenia; E11.22 Type 2 diabetes mellitus with diabetic chronic kidney disease; E78.5 Hyperlipidemia, unspecified; F17.210 Nicotine dependence, cigarettes, uncomplicated; I12.9 Hypertensive chronic kidney disease with stage 1 through stage 4 chronic kidney disease, or unspecified chronic kidney disease; W18.39XA Other fall on same level, initial encounter; N18.9 Chronic kidney disease, unspecified; Z85.72 Personal history of non-Hodgkin lymphomas; Z79.84 Long term (current) use of oral hypoglycemic drugs; Y93.89 Activity, other specified; Y92.89 Other specified places as the place of occurrence of the external cause; Y99.8 Other external cause status; Z03.818 Encounter for observation for suspected exposure to other biological agents ruled out
CPT/HCPCS: 36415; 70450-TC; 71045; 76700-TC; 80048; 80053; 80061; 82150-TC; 82550-TC; 82553-TC; 82728; 82962; 83036; 83605; 83615-TC; 83690-TC; 83735-TC; 83880; 84100-TC; 84443-TC; 84484; 85025; 85379; 85610-TC; 85651-TC; 85730-TC; 86140; 86710; 87040-TC; 93005; 93306; 96361; 96365; 97110-GP; 97116-GP; 99291; G0378; G0481; G0482; J0696; J1644; J1815; J2405; J3480; J7030; J7042; J7050; J7060; Q0144; U0002